=== PATIENT | female | born 1950 | race Hispanic/Latino ===

== ENCOUNTER 2017-08-06 14:50 | Outpatient (CLI) | payer MEDICARE, OTHER ==
--- NOTE | 2017-08-06 15:41 | XRay Report ---
CERVICAL SPINE SERIES THREE VIEWS: 08/06/17 14:50:00 CLINICAL: Neck pain. FINDINGS: Normal vertebral body height, alignment and disk spaces. No fracture or subluxation. Normal odontoid and C1. Multilevel facet joint sclerosis. Normal airway and soft tissues. IMPRESSION: Multilevel facet joint arthropathy.
--- NOTE | 2017-08-06 15:42 | XRay Report ---
XRAY LEFT SHOULDER THREE VIEWS: 08/06/17 14:50:00 CLINICAL: Left shoulder pain. FINDINGS: No fracture or dislocation. Normal glenohumeral joint. Normal AC joint. The soft tissues are normal. IMPRESSION: Normal study.
== END 2017-08-06 14:51 | disposition home or self-care (01) ==
LOC: SPVIMAG 14:50
PROVIDERS: ATTEND Orthopaedic Surgery Sports Medicine
DX: M12.88 Other specific arthropathies, not elsewhere classified, other specified site (principal); M25.512 Pain in left shoulder
CPT/HCPCS: 72040